=== PATIENT | female | born 1955 ===

== ENCOUNTER 2016-10-13 22:59 | Emergency (ER) | payer BC ==
[2016-10-13 23:35] VITALS: TEMP 97.7
[2016-10-14 00:22] LABS: BASOPHILS % (AUTO) 1 % (0-3); EOSINOPHILS % (AUTO) 0 % (0-9); HEMATOCRIT 40 % (35-47); MEAN CORPUSCULAR HGB CONC 35.3 gm/dl (32.0-36.0); MEAN CORPUSCULAR VOLUME 88 fL (81-99); MONOCYTES % (AUTO) 5.8 % (0-12); NEUTROPHILS % (AUTO) 74.3 % (37-80)
[2016-10-14 00:27] LABS: CALCIUM 8.8 mg/dl (8.5-10.1); POTASSIUM 3.6 mMol/L (3.5-5.1)
[2016-10-14 00:58] VITALS: BP 98/59; PULSE 54; RESP 17; O2SAT 97
== END 2016-10-14 00:52 | disposition home or self-care (01) ==
LOC: ED 22:59
DX: R55 Syncope and collapse (principal)
CPT/HCPCS: 36415; 80048; 85025; 93005; 99282; 99284

== ENCOUNTER 2018-04-18 06:47 | Day surgery (SDC) | payer OTHER, BC ==
[2018-04-18] MEDS ORDERED: BUPIVACAINE HCL 0.25% MPF 30 ML SOL INFIL ONE (07:27)
[2018-04-18] MEDS ORDERED: FENTANYL 100MCG/2ML SOL ONE ×2 (07:52→08:33)
[2018-04-18] MEDS ORDERED: PROPOFOL 10 MG/ML EMU IV ONE (07:54)
[2018-04-18] MEDS ORDERED: LIDOCAINE HCL 1% MPF 30 SOL ONE ×2 (07:54→08:33)
[2018-04-18] MEDS ORDERED: EPHEDRINE SULFATE 50 MG/ML SOL ONE (09:00)
[2018-04-18] MEDS ORDERED: ONDANSETRON HCL 4 MG/2 ML SOL ONE (09:00)
[2018-04-18 10:38] VITALS: BP 118/65; PULSE 68; RESP 16; TEMP 97.6; O2SAT 95
== END 2018-04-18 11:10 | disposition home or self-care (01) | DRG 950 ==
LOC: SURG 06:47
PROVIDERS: ATTEND Orthopaedic Surgery
DX: S83.203D Other tear of unspecified meniscus, current injury, right knee, subsequent encounter (principal)
CPT/HCPCS: J2405; J3010; J2001; J2704; J3490

== ENCOUNTER 2018-10-14 14:16 | Outpatient (CLI) | payer OTHER, BC ==
[2018-04-18 10:38] VITALS: O2SAT 95
== END 2018-10-14 14:17 | disposition home or self-care (01) | DRG 556 ==
LOC: CONVCARE 14:16
PROVIDERS: ATTEND Orthopaedic Surgery
DX: M25.551 Pain in right hip (principal); M70.62 Trochanteric bursitis, left hip
CPT/HCPCS: 73560

== ENCOUNTER 2019-05-05 09:36 | Day surgery (SDC) | payer OTHER, BC | END 2019-05-05 14:36 | disposition home or self-care (01) | LOC: SURG 09:36 ==